=== PATIENT | male | born 1965 | race African-American/Black ===

== ENCOUNTER 2021-07-06 14:33 | Outpatient (CLI) | payer OTHER ==
--- NOTE | 2021-07-06 15:30 | XRay Report ---
CHEST 2 VIEWS INDICATION / CLINICAL INFORMATION: COUGH. COMPARISON: None available. FINDINGS: SUPPORT DEVICES: None. HEART / MEDIASTINUM: No significant abnormality. LUNGS / PLEURA: No significant pulmonary or pleural abnormality. No pneumothorax. ADDITIONAL FINDINGS: No significant additional findings. IMPRESSION: 1. No acute findings. Signer Name: Cole Sprague MD Signed: 07/06/2021 3:25 PM Workstation Name: [email or web address]
== END 2021-07-06 14:34 | disposition home or self-care (01) ==
LOC: XRAY 14:33
PROVIDERS: ATTEND Internal Medicine
DX: R05.9 Cough, unspecified (principal)
CPT/HCPCS: 71045